=== PATIENT | female | born 1995 | race Caucasian/White ===

== ENCOUNTER 2017-03-12 23:01 | Emergency (ER) | payer MEDICAID ==
[~2017-03-12] VITALS: Ht 170.2 cm; Wt 127.2 kg
[~2017-03-12 23:01] MED LIST: LEVO150T7 PO; Z.0.BCPILL PO
[2017-03-12 23:07] VITALS: BP 161/70; PULSE 83; RESP 16; TEMP 98.6; O2SAT 99
[2017-03-12] MEDS ORDERED: TYLE325T PO (23:25)
[2017-03-12] MEDS ORDERED: LEVO137T2 PO (23:25)
[2017-03-12] MEDS ORDERED: IBUPROFEN 600 MG TAB PO ONE (23:30)
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
--- NOTE | 2017-03-13 00:07 | RADRPT ---
EXAM DATE/TIME: 03/12/2017 23:37 [facility] COMPARISON: No previous studies available for comparison. INDICATIONS : Wrist pain. MEDICAL HISTORY : None. SURGICAL HISTORY : Thyroidectomy ENCOUNTER: Initial ACUITY: 1 day PAIN SCORE: 8/10 LOCATION: Left upper extremity lateral distal forearm FINDINGS: Three view examination of the left wrist demonstrates no soft tissue swelling, dislocation, or fractu re. The carpal bones are in normal alignment. The joint spaces are maintained. Bony mineralization is normal. CONCLUSION: 1. No acute fracture or dislocation. Matthew Montana MD on March 13, 2017 at 0:05 Board Certified Radiologist. This report was verified electronically.
== END 2017-03-13 01:11 | disposition home or self-care (01) ==
LOC: PHED 23:01
DX: S63.502A Unspecified sprain of left wrist, initial encounter (principal); E89.0 Postprocedural hypothyroidism; W50.1XXA Accidental kick by another person, initial encounter; Y93.83 Activity, rough housing and horseplay; Y99.8 Other external cause status
CPT/HCPCS: 73110; 84443; 99283; L3908

== ENCOUNTER 2017-06-16 20:16 | Emergency (ER) | payer MEDICAID ==
[~2017-06-16] VITALS: Ht 170.2 cm; Wt 126.0 kg
[~2017-06-16 20:16] MED LIST changes: +LEVO137T2 PO; -LEVO150T7 PO; +TYLE325T PO; -Z.0.BCPILL PO
[2017-06-16 20:19] VITALS: BP 159/81; PULSE 83; RESP 17; TEMP 98.5; O2SAT 83
[2017-06-16] MEDS ORDERED: LEVO150T7 PO (20:44)
[2017-06-16] MEDS ORDERED: METOCLOPRAMIDE HCL 10 MG/2 ML VIAL IV PUSH ONE (20:45)
[2017-06-16] MEDS ORDERED: SODIUM CHLORIDE 0.9% FLUSH 10 ML FLUSH IV FLUSH PRN (20:45)
[2017-06-16] MEDS ORDERED: KETOROLAC TROMETHAMINE 30 MG/ML (IVP) VIAL IV PUSH ONE (20:45)
[2017-06-16 21:00] LABS: AUTOMATED NEUTROPHIL # 5.7 TH/MM3 (1.8-7.7); BASOPHIL # 0.1 TH/MM3 (0-0.2); BASOPHIL % 0.8 % (0.0-2.0); EOSINOPHIL # 0.2 TH/MM3 (0-0.4); EOSINOPHIL % 2.7 % (0.0-4.0); HEMATOCRIT 41.3 % (35.0-46.0); LYMPH % 24.6 % (9.0-44.0); MEAN CELL VOLUME 77.3 FL (80.0-100.0); MEAN CORPUSCULAR HEMOGLOBIN 24.5 PG (27.0-34.0); MEAN CORPUSCULAR HGB CONC 31.7 % (32.0-36.0); MONO % 4.2 % (0.0-8.0); NEUT % 67.7 % (16.0-70.0); PLATELET COUNT 362 TH/MM3 (150-450); RED BLOOD COUNT 5.34 MIL/MM3 (4.00-5.30); RED CELL DISTRIBUTION WIDTH 13.7 % (11.6-17.2); WHITE BLOOD COUNT 8.3 TH/MM3 (4.0-11.0)
[2017-06-16 21:02] LABS: HEMO FLAGS AUTO DIFF
[2017-06-16 21:07] VITALS: O2SAT 98
[2017-06-16 21:07] LABS: BLOOD, URINE MOD (NEG); GLUCOSE,URINE NEG (NEG); KETONE, URINE NEG (NEG); NITRITE,URINE NEG (NEG); PH, URINE 7.5 (5.0-8.5)
[2017-06-16 21:08] LABS: CHLORIDE 103 MEQ/L (98-107); POTASSIUM 3.6 MEQ/L (3.5-5.1); SODIUM (NA) 138 MEQ/L (136-145)
[2017-06-16 21:11] LABS: ANION GAP 9 MEQ/L (5-15); APTT (PATIENT) 26.5 SEC (24.3-30.1); BICARBONATE 26.5 MEQ/L (21.0-32.0); BLOOD UREA NITROGEN 14 MG/DL (7-18)
[2017-06-16 21:14] LABS: ALT (GPT) 33 U/L (9-42); AST (GOT) 16 U/L (16-38); URINE COLOR YELLOW (YELLW/STRAW)
[2017-06-16 21:15] LABS: GLOMERULAR FILTRATION RATE 81 ML/MIN (>89); RBC, URINE 0-3 /hpf (0-3); SQUAMOUS EPITHELIAL CELL URINE 0-5 /hpf (0-5)
[2017-06-16 21:16] LABS: COMMENT (UR) CULT NOT INDICATED; CULTURE IF INDICATED CULT NOT INDICATED; TOTAL BILIRUBIN ADULT 0.2 MG/DL (0.2-1.0); WBC, URINE 0-2 /hpf (0-5)
[2017-06-16 21:17] LABS: ALKALINE PHOSPHATASE 110 U/L (45-117)
--- NOTE | 2017-06-16 21:24 | PD ---
HPI Chief Complaint: Headache Time Seen by Provider: 20:29 Travel History International Travel<30 days: No Contact w/Intl Traveler<30days: No Traveled to known affect area: No History of Present Illness HPI 21-year-old female with history of hypothyroidism status post thyroidectomy at the age of 17, on Synthroid, here with family for evaluation of generalized malaise, blurred vision, retro-orbital eye pain, hair loss, weight gain. The patient reports that she believes that she may be hypothyroid. She has been taking her medication as prescribed, and reports that it was recently increased to 150 g daily about 2 months ago by her primary care physician. She has been unable to make an appointment with her primary care physician. She states she feels cold. No documented fevers. She does feel persistent nausea. Blurry vision is intermittent. Patient is unable to describe the retro-orbital pain which is also intermittent. She does have some photosensitivity with this pain. Currently no blurred vision. No abdominal pain. PFSH Past Medical History Diminished Hearing: No Immunizations Current: Yes Thyroid Disease: Yes (pre-cancerous thyroid nodules; hypothyroid) ?: Not LMP: 05/29/17 : 0 Past Surgical History Tonsillectomy: Yes Other Surgery: Yes (THYROIDECTOMY) Social History Alcohol Use: No Tobacco Use: No Substance Use: No Allergies-Medications (Allergen,Severity, Reaction): Coded Allergies: No Known Allergies (Verified Adverse Reaction, Unknown, 06/16/17) Reported Meds & Prescriptions Reported Meds & Active Scripts Active Reported Levothyroxine (Levothyroxine Sodium) 150 Mcg Tab 150 Mcg PO DAILY Review of Systems Except as stated in HPI: all other systems reviewed are Neg Physical Exam Narrative GENERAL: Well-developed, well-nourished, overweight, comfortable, no apparent distress. SKIN: Focused skin assessment warm/dry. No rash. HEAD: Atraumatic. Normocephalic. EYES: Pupils equal, round, 3 mm, reactive to light. EOMI. Funduscopic exam shows no papilledema, with normal appearing retina. Visual acuity is 20/20 in the right eye, 20/25 in the left eye. No scleral icterus. No injection or drainage. ENT: No nasal bleeding or discharge. Mucous membranes pink and moist. NECK: Trachea midline. No JVD. CARDIOVASCULAR: Regular rate and rhythm. RESPIRATORY: No accessory muscle use. Clear to auscultation. Breath sounds equal bilaterally. GASTROINTESTINAL: Abdomen soft, non-tender, nondistended. MUSCULOSKELETAL: No obvious deformities. No clubbing. No cyanosis. No edema. NEUROLOGICAL: Awake and alert. No obvious cranial nerve deficits. Motor grossly within normal limits. Normal speech. PSYCHIATRIC: Appropriate mood and affect; insight and judgment normal. Data Data Last Documented VS Vital Signs Date Time Temp Pulse Resp B/P (MAP) Pulse Ox O2 Delivery O2 Flow Rate FiO2 06/16/17 21:59 75 16 145/82 (103) 98 Room Air 06/16/17 20:19 98.5 Orders Orders Complete Blood Count With Diff (06/16/17 20:37) Comprehensive Metabolic Panel (06/16/17 20:37) Prothrombin Time / Inr (Pt) (06/16/17 20:37) Act Partial Throm Time (Ptt) (06/16/17 20:37) Urinalysis - C+S If Indicated (06/16/17 20:37) Iv Access Insert/Monitor (06/16/17 20:37) Ecg Monitoring (06/16/17 20:37) Oximetry (06/16/17 20:37) Sodium Chloride 0.9% Flush (Ns Flush) (06/16/17 20:45) Ed Urine Pregnancytest Poc (06/16/17 20:37) Ct Brain W/O Iv Contrast(Rout) (06/16/17 ) Metoclopramide Inj (Reglan Inj) (06/16/17 20:45) Ketorolac Inj (Toradol Inj) (06/16/17 20:45) Thyroid Stimulating Hormone (06/16/17 20:37) Free Thyroxine (T4) (06/16/17 20:37) Labs Laboratory Tests Test 06/16/17 20:52 White Blood Count 8.3 TH/MM3 Red Blood Count 5.34 MIL/MM3 Hemoglobin 13.1 GM/DL Hematocrit 41.3 % Mean Corpuscular Volume 77.3 FL Mean Corpuscular Hemoglobin 24.5 PG Mean Corpuscular Hemoglobin Concent 31.7 % Red Cell Distribution Width 13.7 % Platelet Count 362 TH/MM3 Mean Platelet Volume 7.9 FL Neutrophils (%) (Auto) 67.7 % Lymphocytes (%) (Auto) 24.6 % Monocytes (%) (Auto) 4.2 % Eosinophils (%) (Auto) 2.7 % Basophils (%) (Auto) 0.8 % Neutrophils # (Auto) 5.7 TH/MM3 Lymphocytes # (Auto) 2.0 TH/MM3 Monocytes # (Auto) 0.3 TH/MM3 Eosinophils # (Auto) 0.2 TH/MM3 Basophils # (Auto) 0.1 TH/MM3 CBC Comment AUTO DIFF Differential Comment AUTO DIFF CONFIRMED Ovalocytes 1+ Prothrombin Time 10.0 SEC Prothromb Time International Ratio 1.0 RATIO Activated Partial Thromboplast Time 26.5 SEC Urine Color YELLOW Urine Turbidity CLOUDY Urine pH 7.5 Urine Specific [place] 1.021 Urine Protein NEG mg/dL Urine Glucose (UA) NEG mg/dL Urine Ketones NEG mg/dL Urine Occult Blood MOD Urine Nitrite NEG Urine Bilirubin NEG Urine Leukocyte Esterase TRACE Urine RBC 0-3 /hpf Urine WBC 0-2 /hpf Urine Squamous Epithelial Cells 0-5 /hpf Urine Amorphous Sediment LARGE Microscopic Urinalysis Comment CULT NOT INDICATED Blood Urea Nitrogen 14 MG/DL Creatinine 0.89 MG/DL Random Glucose 91 MG/DL Total Protein 8.6 GM/DL Albumin 4.3 GM/DL Calcium Level 8.7 MG/DL Alkaline Phosphatase 110 U/L Aspartate Amino Transf (AST/SGOT) 16 U/L Alanine Aminotransferase (ALT/SGPT) 33 U/L Total Bilirubin 0.2 MG/DL Sodium Level 138 MEQ/L Potassium Level 3.6 MEQ/L Chloride Level 103 MEQ/L Carbon Dioxide Level 26.5 MEQ/L Anion Gap 9 MEQ/L Estimat Glomerular Filtration Rate 81 ML/MIN Thyroid Stimulating Hormone 3rd Gen 1.650 uIU/ML [facility] Medical Decision Making Medical Screen Exam Complete: Yes Emergency Medical Condition: Yes Differential Diagnosis Hypothyroidism, diabetes, metabolic abnormality, benign intracranial hypertension, intracranial abnormality, UTI, Narrative Course Vital signs show heart rate 75, blood pressure 145/82, pulse ox 98% on room air , oral temp of 98.5F. CBC is unremarkable. CMP is unremarkable. TSH is 1.65. UA is not suggestive of UTI. Urine is negative. CT head read as normal exam. The patient was given IV Toradol and IV Reglan and reports that she feels significantly improved. Vision is 20/20 in the right eye, 20/25 in the left eye. She no longer has blurry vision while in the emergency department. At this point she is stable for discharge home with further outpatient follow-up with her primary care physician this week. She was advised on when to return to the emergency department. She verbalizes understanding and agreement with plan. Diagnosis Primary Impression: Malaise Additional Impressions: Blurry vision Headache Qualified Codes: R51 - Headache Referrals: Primary Care Physician 3 days Additional Instructions: Follow-up with a primary care physician this week. Return to the emergency department for worsening symptoms or any other concerns. Scripts Ondansetron Odt (Zofran Odt) 4 Mg Tab 4 MG SL Q8HR Y for Nausea/Vomiting, #20 TAB 0 Refills Prov: Rafi Villavicencio MD 06/16/17 Disposition: 01 DISCHARGE HOME Condition: Stable Rafi Villavicencio MD Jun 16, 2017 21:24
--- NOTE | 2017-06-16 21:57 | RADRPT ---
EXAM DATE/TIME: 06/16/2017 21:07 [facility] COMPARISON: CT BRAIN W/O CONTRAST, August 30, 2015, 22:03. INDICATIONS : Cephalgia. Blurred vision. RADIATION DOSE: 57.79 CTDIvol (mGy) MEDICAL HISTORY : None SURGICAL HISTORY : Thyroidectomy. Tonsillectomy. ENCOUNTER: Initial ACUITY: 2 months PAIN SCALE: 6/10 LOCATION: Bilateral frontal TECHNIQUE: Multiple contiguous axial images were obtained of the head. Using automated exposure control and adj ustment of the mA and/or kV according to patient size, radiation dose was kept as low as reasonably a chievable to obtain optimal diagnostic quality images. DICOM format image data is available electro nically for review and comparison. FINDINGS: CEREBRUM: The ventricles are normal for age. No evidence of midline shift, mass lesion, hemorrhage or acute in farction. No extra-axial fluid collections are seen. POSTERIOR FOSSA: The cerebellum and brainstem are intact. The 4th ventricle is midline. The cerebellopontine angle i s unremarkable. EXTRACRANIAL: The visualized portion of the orbits is intact. SKULL: The calvaria is intact. No evidence of skull fracture. CONCLUSION: 1. No acute intracranial abnormalities. Haseeb Pritchett MD on June 16, 2017 at 21:54 Board Certified Radiologist. This report was verified electronically.
[2017-06-16 21:58] LABS: OVALOCYTES 1+ (NORMAL)
[2017-06-16 21:59] VITALS: BP 145/82; PULSE 75; RESP 16; O2SAT 98
[2017-06-16 21:59] LABS: SCAN/DIFF AUTO DIFF CONFIRMED
[2017-06-16] MEDS ORDERED: ZOFR4TAB3 SL (22:13)
[2017-06-16 22:57] LABS: FREE T4 1.16 NG/DL (0.76-1.46)
== END 2017-06-16 22:22 | disposition home or self-care (01) ==
LOC: PHED 20:16
DX: R53.81 Other malaise (principal); H53.8 Other visual disturbances; R51 Headache; R11.0 Nausea; E89.0 Postprocedural hypothyroidism; Z79.899 Other long term (current) drug therapy
CPT/HCPCS: 70450; 80053; 81001; 84439; 84443; 84703; 85025; 85610; 85730; 96374; 96375; 99285; J1885; J2765

== ENCOUNTER 2017-10-29 03:22 | Emergency (ER) | payer MEDICAID, OTHER ==
[~2017-10-29] VITALS: Ht 170.2 cm; Wt 126.8 kg
[~2017-10-29 03:22] MED LIST changes: -LEVO137T2 PO; +LEVO150T7 PO; -TYLE325T PO; +ZOFR4TAB3 SL
[2017-10-29] MEDS ORDERED: IOHEXOL 350 MG/ML 10 ML VIAL (for RAD DIAG) IVCONTRAST ONE (03:23)
[2017-10-29 03:27] VITALS: BP 143/80; PULSE 99; RESP 20; TEMP 98.8; O2SAT 98
[2017-10-29] MEDS ORDERED: ONDANSETRON HCL 4 MG/2 ML VIAL IVP ONE (03:45)
[2017-10-29] MEDS ORDERED: KETOROLAC TROMETHAMINE 30 MG/ML (IVP) VIAL IVP ONE (03:45)
--- NOTE | 2017-10-29 03:45 | PD ---
HPI Chief Complaint: Abdominal Pain Time Seen by Provider: 03:36 Travel History International Travel<30 days: No Contact w/Intl Traveler<30days: No Traveled to known affect area: No History of Present Illness HPI 22yo F with no PMH presents to the ED with c/o right sided abdominal pain for 30 minutes. Pain is right sided and feels like it radiates to right lower back. Movement and deep breathing worsens pain. Pain is severe, sharp and associated with nausea. Denies any fever, chest pain, sob, vomiting, dysuria, hematuria, vaginal bleeding or discharge. Denies any history of nephrolithiasis. PFSH Past Medical History Diminished Hearing: No Immunizations Current: Yes Thyroid Disease: Yes (pre-cancerous thyroid nodules; hypothyroid) Tetanus Vaccination: Unknown Influenza Vaccination: No ?: Not LMP: 10/25/17 : 0 Past Surgical History Tonsillectomy: Yes Other Surgery: Yes (THYROIDECTOMY) Social History Alcohol Use: No Tobacco Use: No Substance Use: No Allergies-Medications (Allergen,Severity, Reaction): Coded Allergies: No Known Allergies (Verified Adverse Reaction, Unknown, 10/29/17) Reported Meds & Prescriptions Reported Meds & Active Scripts Active Reported Levothyroxine (Levothyroxine Sodium) 150 Mcg Tab 150 Mcg PO DAILY Review of Systems Except as stated in HPI: all other systems reviewed are Neg Physical Exam Narrative GENERAL: 22yo F in moderate distress. SKIN: Focused skin assessment warm/dry. HEAD: Atraumatic. Normocephalic. CARDIOVASCULAR: Regular rate and rhythm. No murmur appreciated. RESPIRATORY: No accessory muscle use. Clear to auscultation. Breath sounds equal bilaterally. GASTROINTESTINAL: Abdomen soft, +TTP right of umbilicus. Right mid abdomen. BACK: No CVA tenderness bilaterally. +TTP right paraspinal L4-5. MUSCULOSKELETAL: No obvious deformities. No clubbing. No cyanosis. No edema. NEUROLOGICAL: Awake and alert. No obvious cranial nerve deficits. Motor grossly within normal limits. Normal speech. PSYCHIATRIC: Appropriate mood and affect; insight and judgment normal. Data Data Last Documented VS Vital Signs Date Time Temp Pulse Resp B/P (MAP) Pulse Ox O2 Delivery O2 Flow Rate FiO2 10/29/17 05:04 102 16 134/72 (92) 98 Room Air 10/29/17 03:27 98.8 Orders Orders Complete Blood Count With Diff (10/29/17 03:41) Comprehensive Metabolic Panel (10/29/17 03:41) Lipase (10/29/17 03:41) Urinalysis - C+S If Indicated (10/29/17 03:41) Ct Abd/Pel W Iv Contrast(Rout) (10/29/17 03:41) Ondansetron Inj (Zofran Inj) (10/29/17 03:45) Ketorolac Inj (Toradol Inj) (10/29/17 03:45) Ed Urine Pregnancytest Poc (10/29/17 03:41) Urine Culture (10/29/17 03:50) Iohexol 350 Inj (Omnipaque 350 Inj) (10/29/17 03:23) Morphine Inj (Morphine Inj) (10/29/17 04:45) Ondansetron Inj (Zofran Inj) (10/29/17 04:45) Ceftriaxone Inj (Rocephin Inj) (10/29/17 04:45) Morphine Inj (Morphine Inj) (10/29/17 05:15) Sodium Chlor 0.9% 1000 Ml Inj (Ns 1000 M (10/29/17 05:15) Labs Laboratory Tests Test 10/29/17 03:50 10/29/17 03:58 Urine Color YELLOW Urine Turbidity CLOUDY Urine pH 6.5 Urine Specific [place] 1.015 Urine Protein TRACE mg/dL Urine Glucose (UA) NEG mg/dL Urine Ketones NEG mg/dL Urine Occult Blood LARGE Urine Nitrite NEG Urine Bilirubin NEG Urine Urobilinogen 0.2 MG/DL Urine Leukocyte Esterase TRACE Urine RBC 25-49 /hpf Urine WBC 9-14 /hpf Urine Squamous Epithelial Cells 6-8 /hpf Urine Amorphous Sediment MOD Urine Bacteria MANY /hpf Microscopic Urinalysis Comment CULTURE INDICATED White Blood Count 6.9 TH/MM3 Red Blood Count 4.74 MIL/MM3 Hemoglobin 12.1 GM/DL Hematocrit 36.0 % Mean Corpuscular Volume 76.0 FL Mean Corpuscular Hemoglobin 25.4 PG Mean Corpuscular Hemoglobin Concent 33.5 % Red Cell Distribution Width 13.7 % Platelet Count 314 TH/MM3 Mean Platelet Volume 8.3 FL Neutrophils (%) (Auto) 53.0 % Lymphocytes (%) (Auto) 36.1 % Monocytes (%) (Auto) 6.6 % Eosinophils (%) (Auto) 2.8 % Basophils (%) (Auto) 1.5 % Neutrophils # (Auto) 3.6 TH/MM3 Lymphocytes # (Auto) 2.5 TH/MM3 Monocytes # (Auto) 0.5 TH/MM3 Eosinophils # (Auto) 0.2 TH/MM3 Basophils # (Auto) 0.1 TH/MM3 CBC Comment DIFF FINAL Differential Comment Blood Urea Nitrogen 16 MG/DL Creatinine 0.77 MG/DL Random Glucose 104 MG/DL Total Protein 8.0 GM/DL Albumin 3.9 GM/DL Calcium Level 9.0 MG/DL Alkaline Phosphatase 95 U/L Aspartate Amino Transf (AST/SGOT) 16 U/L Alanine Aminotransferase (ALT/SGPT) 24 U/L Total Bilirubin 0.1 MG/DL Sodium Level 139 MEQ/L Potassium Level 4.1 MEQ/L Chloride Level 106 MEQ/L Carbon Dioxide Level 28.3 MEQ/L Anion Gap 5 MEQ/L Estimat Glomerular Filtration Rate 95 ML/MIN Lipase 82 U/L MDM Medical Decision Making Medical Screen Exam Complete: Yes Emergency Medical Condition: Yes Differential Diagnosis Nephrolithiasis vs. pyelonephritis vs. appendicitis Narrative Course 22yo F with sudden onset right sided abdominal pain that is worst with movement and deep breathing. Impression is nephrolithiasis. Labs reviewed, no leukocytosis. H/H normal. Creatinine normal at 0.77. UA showed large blood. WBC 9-14. Pt given ceftriaxone 1gm IV. Urine negative. Pt given zofran and toradol which did not help and pt was still vomiting. Pt given another dose of zofran and morphine 4mg IV. Pt's improved improved but is now back so another 6mg of morphine given. CT a/p showed normal appendix. Nonobstructing calculus right renal pelvis measures 2mm. Nonobstructing left renal calculus measures 2-3 mm. Kidneys show no mass or hydronephrosis. Pt reevaluated at bedside and pain has now resolved. Pt feels better and no longer nauseous. Tolerating PO. Return precautions given. Diagnosis Primary Impression: UTI (urinary tract infection) Qualified Codes: N39.0 - Urinary tract infection, site not specified; R31.9 - Hematuria, unspecified Additional Impression: Nephrolithiasis Referrals: Francis Packer DO as needed Patient Instructions: General Instructions Departure Forms: Tests/Procedures Additional Instructions: Please follow up with your primary care physician in 2-3 days. Return to the ED if symptoms worsen. Med/Other Pt SpecificInfo: Prescription(s) given Scripts Hydrocodone-Acetaminophen (Hydrocodone-Acetaminophen) 5-325 mg Tab 1 TAB PO Q6H Y for PAIN, #6 TAB 0 Refills Prov: Sena Kaba DO 10/29/17 Sulfamethoxazole-Trimethoprim (Bactrim DS) 800-160 Mg Tab 1 TAB PO BID for Infection, #14 TAB 0 Refills Prov: Sena Kaba DO 10/29/17 Disposition: 01 DISCHARGE HOME Condition: Stable Sena Kaba DO Oct 29, 2017 03:45
[2017-10-29 04:11] LABS: BILIRUBIN, URINE NEG (NEG); BLOOD, URINE LARGE (NEG); GLUCOSE,URINE NEG (NEG); KETONE, URINE NEG (NEG); NITRITE,URINE NEG (NEG); PH, URINE 6.5 (5.0-8.5); URINE COLOR YELLOW (YELLW/STRAW); URINE LEUKOCYTE ESTERASE TRACE (NEG)
[2017-10-29 04:12] LABS: AUTOMATED NEUTROPHIL # 3.6 TH/MM3 (1.8-7.7); BASOPHIL # 0.1 TH/MM3 (0-0.2); BASOPHIL % 1.5 % (0.0-2.0); EOSINOPHIL # 0.2 TH/MM3 (0-0.4); EOSINOPHIL % 2.8 % (0.0-4.0); HEMOGLOBIN 12.1 GM/DL (11.6-15.3); LYMPH % 36.1 % (9.0-44.0); LYMPHOCYTE # 2.5 TH/MM3 (1.0-4.8); MEAN CORPUSCULAR HEMOGLOBIN 25.4 PG (27.0-34.0); MEAN CORPUSCULAR HGB CONC 33.5 % (32.0-36.0); MEAN PLATELET VOLUME 8.3 FL (7.0-11.0); MONO % 6.6 % (0.0-8.0); MONOCYTE # 0.5 TH/MM3 (0-0.9); PLATELET COUNT 314 TH/MM3 (150-450); RED BLOOD COUNT 4.74 MIL/MM3 (4.00-5.30); RED CELL DISTRIBUTION WIDTH 13.7 % (11.6-17.2); WHITE BLOOD COUNT 6.9 TH/MM3 (4.0-11.0)
[2017-10-29 04:17] LABS: AMORPHOUS SEDIMENT, URINE MOD; BACTERIA, URINE MANY /hpf
[2017-10-29 04:18] LABS: CHLORIDE 106 MEQ/L (98-107); SODIUM (NA) 139 MEQ/L (136-145)
[2017-10-29 04:22] LABS: ALBUMIN 3.9 GM/DL (3.4-5.0); BICARBONATE 28.3 MEQ/L (21.0-32.0); BLOOD UREA NITROGEN 16 MG/DL (7-18); GLUCOSE,RANDOM 104 MG/DL (74-106)
[2017-10-29 04:25] LABS: ALT (GPT) 24 U/L (10-53); AST (GOT) 16 U/L (15-37); CREATININE 0.77 MG/DL (0.50-1.00); GLOMERULAR FILTRATION RATE 95 ML/MIN (>89)
[2017-10-29 04:27] LABS: TOTAL BILIRUBIN ADULT 0.1 MG/DL (0.2-1.0)
[2017-10-29 04:28] LABS: ALKALINE PHOSPHATASE 95 U/L (45-117)
[2017-10-29] MEDS ORDERED: ONDANSETRON HCL 4 MG/2 ML VIAL IV PUSH ONE (04:45)
[2017-10-29] MEDS ORDERED: MORPHINE SULFATE 4 MG/ML INJ IV PUSH ONE (04:45)
[2017-10-29] MEDS ORDERED: cefTRIAXone INJ 1,000 MG in SODIUM CHLORIDE 0.9% INJ 100 ML IV ONE (04:45)
[2017-10-29 05:04] VITALS: BP 134/72; PULSE 102; RESP 16; O2SAT 98
[2017-10-29] MEDS ORDERED: MORPHINE SULFATE 8 MG/ML INJ IV PUSH ONE (05:15)
[2017-10-29] MEDS ORDERED: SODIUM CHLOR 0.9% 1000 ML INJ 1,000 ML IV ONE (05:15)
--- NOTE | 2017-10-29 05:20 | RADRPT ---
EXAM DATE/TIME: 10/29/2017 04:20 [facility] COMPARISON: No previous studies available for comparison. INDICATIONS : Right lower abdomen pain today. IV CONTRAST: 94 cc Omnipaque 350 (iohexol) IV ORAL CONTRAST: No oral contrast ingested. RADIATION DOSE: 22.33 CTDIvol (mGy) ; Patient body habitus MEDICAL HISTORY : None SURGICAL HISTORY : Thyroidectomy. ENCOUNTER: Initial ACUITY: 1 day PAIN SCALE: 9/10 LOCATION: Right lower quadrant TECHNIQUE: Volumetric scanning of the abdomen and pelvis was performed. Using automated exposure control and ad justment of the mA and/or kV according to patient size, radiation dose was kept as low as reasonably achievable to obtain optimal diagnostic quality images. DICOM format image data is available electro nically for review and comparison. FINDINGS: LOWER LUNGS: The visualized lower lungs are clear. LIVER: Homogeneous density without lesion. There is no dilation of the biliary tree. No calcified gallston es. SPLEEN: Normal size without lesion. PANCREAS: Within normal limits. KIDNEYS: Normal in size and shape. There is no mass or hydronephrosis. No obstructing calculus left mid kidne y measures to 2-3 mm. Nonobstructing 2 mm calculus in the right renal pelvis.. ADRENAL GLANDS: Within normal limits. VASCULAR: There is no aortic aneurysm. BOWEL/MESENTERY: The stomach, small bowel, and colon demonstrate no acute abnormality. There is no free intraperitone al air or fluid. Normal appendix. ABDOMINAL WALL: Within normal limits. RETROPERITONEUM: There is no lymphadenopathy. BLADDER: No wall thickening or mass. REPRODUCTIVE: Within normal limits. INGUINAL: There is no lymphadenopathy or hernia. MUSCULOSKELETAL: Within normal limits for patient age. CONCLUSION: 1. Nonobstructing calculus right renal pelvis measures 2 mm. 2. Nonobstructing left renal calculus measures 2-3 mm. Franky Del Castillo MD on October 29, 2017 at 5:15 Board Certified Radiologist. This report was verified electronically.
[2017-10-29] MEDS ORDERED: BACT800T5 PO (05:50)
[2017-10-29] MEDS ORDERED: HYDR-3516 PO (05:51)
[2017-10-29 06:27] VITALS: BP 134/72
[2017-10-30] MEDS ORDERED: HYDR-3516 PO (20:56)
[2017-10-30] MEDS ORDERED: IBUP1TAB7 PO (20:56)
[2017-10-30] MEDS ORDERED: TAMS5CAP PO (20:56)
== END 2017-10-29 06:30 | disposition home or self-care (01) ==
LOC: PHED 03:22
DX: N39.0 Urinary tract infection, site not specified (principal); B96.20 Unspecified Escherichia coli [E. coli] as the cause of diseases classified elsewhere; N20.0 Calculus of kidney; R11.0 Nausea; E03.9 Hypothyroidism, unspecified; Z79.899 Other long term (current) drug therapy
CPT/HCPCS: 74177; 80053; 81001; 83690; 84703; 85025; 87077; 87086; 87186; 96361; 96365; 99285; J0696; J1885; J2270; J2405; J7030; Q9967

== ENCOUNTER 2017-10-30 16:25 | Emergency (ER) | payer OTHER ==
[~2017-10-30] VITALS: Ht 170.2 cm; Wt 125.8 kg
[~2017-10-30 16:25] MED LIST changes: +BACT800T5 PO; +HYDR-3516 PO; -ZOFR4TAB3 SL
[2017-10-30 16:40] VITALS: BP 166/91; PULSE 77; RESP 20; TEMP 98.3; O2SAT 100
[2017-10-30] MEDS ORDERED: SODIUM CHLOR 0.9% 1000 ML INJ 1,000 ML IV SCH (16:53)
[2017-10-30] MEDS ORDERED: SODIUM CHLORIDE 0.9% FLUSH 10 ML FLUSH IV FLUSH PRN (17:00)
[2017-10-30] MEDS ORDERED: ONDANSETRON HCL 4 MG/2 ML VIAL IVP ONE (17:00)
[2017-10-30] MEDS ORDERED: KETOROLAC TROMETHAMINE 30 MG/ML (IVP) VIAL IVP ONE (17:00)
--- NOTE | 2017-10-30 17:00 | PD ---
HPI Chief Complaint: Flank/Kidney Pain Time Seen by Provider: 16:47 Travel History International Travel<30 days: No Contact w/Intl Traveler<30days: No Traveled to known affect area: No History of Present Illness HPI 22-year-old female presents to the emergency department for evaluation of right lower back pain that radiates to the right abdomen. Current pain is 10/10, aching and throbbing. Patient states that the pain went away until just prior to arrival when the pain restarted with nausea. Patient took the Lynn that was prescribed to her without improvement. She reports subjective fever yesterday, but did not check her temperature. No headache. No chest pain or shortness of breath. No vomiting. No diarrhea or constipation. She denies abnormal vaginal discharge or risk of STDs. She is diagnosed with nephrolithiasis and UTI yesterday. Patient was discharged prescription for Lynn as well as Bactrim for UTI. Moderate severity. PFSH Past Medical History Diminished Hearing: No Immunizations Current: Yes Thyroid Disease: Yes (pre-cancerous thyroid nodules; hypothyroid) ?: Not LMP: 1 week : 0 Past Surgical History Tonsillectomy: Yes Other Surgery: Yes (THYROIDECTOMY) Social History Alcohol Use: No Tobacco Use: No Substance Use: No Allergies-Medications (Allergen,Severity, Reaction): Coded Allergies: No Known Allergies (Verified Adverse Reaction, Unknown, 10/30/17) Reported Meds & Prescriptions Reported Meds & Active Scripts Active Hydrocodone-Acetaminophen 5-325 mg Tab 1 Tab PO Q6H PRN Bactrim DS (Sulfamethoxazole-Trimethoprim) 800-160 Mg Tab 1 Tab PO BID Reported Levothyroxine (Levothyroxine Sodium) 150 Mcg Tab 150 Mcg PO DAILY Review of Systems Except as stated in HPI: all other systems reviewed are Neg Physical Exam Narrative GENERAL: Well-nourished, well-developed female patient, ambulatory. Afebrile. SKIN: Focused skin assessment warm/dry. HEAD: Normocephalic. Atraumatic. EYES: No scleral icterus. No injection or drainage. NECK: Supple, trachea midline. No JVD or lymphadenopathy. CARDIOVASCULAR: Regular rate and rhythm without murmurs, gallops, or rubs. RESPIRATORY: Breath sounds equal bilaterally. No accessory muscle use. Lung sounds are clear to auscultation. GASTROINTESTINAL: Abdomen soft and nondistended. Patient has tenderness over right upper quadrant, right lower quadrant. MUSCULOSKELETAL: No cyanosis, or edema. BACK: Nontender without obvious deformity. No CVA tenderness. Data Data Last Documented VS Vital Signs Date Time Temp Pulse Resp B/P (MAP) Pulse Ox O2 Delivery O2 Flow Rate FiO2 10/30/17 18:45 18 10/30/17 18:20 79 146/83 (104) 98 Room Air 10/30/17 16:40 98.3 Orders Orders Complete Blood Count With Diff (10/30/17 16:53) Comprehensive Metabolic Panel (10/30/17 16:53) Lipase (10/30/17 16:53) Urinalysis - C+S If Indicated (10/30/17 16:53) Iv Access Insert/Monitor (10/30/17 16:53) Ecg Monitoring (10/30/17 16:53) Oximetry (10/30/17 16:53) Ondansetron Inj (Zofran Inj) (10/30/17 17:00) Sodium Chlor 0.9% 1000 Ml Inj (Ns 1000 M (10/30/17 16:53) Sodium Chloride 0.9% Flush (Ns Flush) (10/30/17 17:00) Ketorolac Inj (Toradol Inj) (10/30/17 17:00) Urine Culture (10/30/17 16:55) Sodium Chlor 0.9% 1000 Ml Inj (Ns 1000 M (10/30/17 18:15) Basic Metabolic Panel (Bmp) (10/30/17 18:45) Morphine Inj (Morphine Inj) (10/30/17 19:30) Labs Laboratory Tests Test 10/30/17 16:55 10/30/17 17:15 10/30/17 20:15 Urine Color YELLOW Urine Turbidity SL CLOUDY Urine pH 6.5 Urine Specific [place] 1.025 Urine Protein TRACE mg/dL Urine Glucose (UA) NEG mg/dL Urine Ketones NEG mg/dL Urine Occult Blood LARGE Urine Nitrite NEG Urine Bilirubin NEG Urine Urobilinogen 0.2 MG/DL Urine Leukocyte Esterase NEG Urine RBC 100-200 /hpf Urine WBC 9-14 /hpf Urine Squamous Epithelial Cells > 8 /hpf Urine Amorphous Sediment SMALL Urine Bacteria OCC /hpf Microscopic Urinalysis Comment CULTURE INDICATED White Blood Count 8.5 TH/MM3 Red Blood Count 4.78 MIL/MM3 Hemoglobin 12.0 GM/DL Hematocrit 37.1 % Mean Corpuscular Volume 77.7 FL Mean Corpuscular Hemoglobin 25.1 PG Mean Corpuscular Hemoglobin Concent 32.3 % Red Cell Distribution Width 13.5 % Platelet Count 310 TH/MM3 Mean Platelet Volume 7.7 FL Neutrophils (%) (Auto) 73.9 % Lymphocytes (%) (Auto) 18.0 % Monocytes (%) (Auto) 5.8 % Eosinophils (%) (Auto) 1.7 % Basophils (%) (Auto) 0.6 % Neutrophils # (Auto) 6.3 TH/MM3 Lymphocytes # (Auto) 1.5 TH/MM3 Monocytes # (Auto) 0.5 TH/MM3 Eosinophils # (Auto) 0.1 TH/MM3 Basophils # (Auto) 0.1 TH/MM3 CBC Comment DIFF FINAL Differential Comment Blood Urea Nitrogen 14 MG/DL 17 MG/DL Creatinine 1.30 MG/DL 1.30 MG/DL Random Glucose 93 MG/DL 87 MG/DL Total Protein 7.9 GM/DL Albumin 3.9 GM/DL Calcium Level 9.4 MG/DL 8.3 MG/DL Alkaline Phosphatase 97 U/L Aspartate Amino Transf (AST/SGOT) 13 U/L Alanine Aminotransferase (ALT/SGPT) 22 U/L Total Bilirubin 0.3 MG/DL Sodium Level 139 MEQ/L 141 MEQ/L Potassium Level 3.9 MEQ/L 4.2 MEQ/L Chloride Level 104 MEQ/L 110 MEQ/L Carbon Dioxide Level 27.6 MEQ/L 25.3 MEQ/L Anion Gap 7 MEQ/L 6 MEQ/L Estimat Glomerular Filtration Rate 52 ML/MIN 52 ML/MIN Lipase 77 U/L [facility] Medical Decision Making Medical Screen Exam Complete: Yes Emergency Medical Condition: Yes Medical Record Reviewed: Yes Differential Diagnosis Nephrolithiasis versus UTI versus intractable pain versus pyelonephritis Narrative Course 22-year-old female presents to the emergency department for evaluation of right back pain that radiates the right abdomen. Patient was seen yesterday morning for the same thing. I reviewed the chart from yesterday. CBC showed no acute abnormality. CMP was unremarkable. Lipase was 82. UA showed large occult blood, 9-14 WBC, culture indicated. Urine test was negative. CT the abdomen/pelvis with IV contrast showed nonobstructing calculus right renal pelvis measures 2 mm, nonobstructing left renal calculus measures 2-3 mm. CBC, CMP, lipase, UA are ordered and pending. Patient is given normal saline 1 L IV bolus, Zofran 4 mg IV, Toradol 30 mg IV. CBC shows no acute. CMP shows creatinine 1.30. Lipase is 77. UA shows 9-14 WBCs however contaminated with squamous epithelial cells I discussed elevated creatinine with my attending physician who recommends patient get second liter normal saline IV bolus and repeat labs. Repeat BMP shows no change in creatinine. Discussed this with Dr. Fuller, my attending physician. Patient stressed on the need to follow-up with urology. She will be given some more hydrocodone for home. Also started on Flomax. She will be given her first dose here. I will also give her prescription for ibuprofen. Patient is instructed to return for any acute worsening of symptoms. The patient was discharged in stable condition with instructions, including return instructions and follow up instructions. Diagnosis Primary Impression: Nephrolithiasis Additional Impression: Urinary tract infection Qualified Codes: N30.01 - Acute cystitis with hematuria Referrals: Duy Lipscomb MD Urologist Patient Instructions: General Instructions, Kidney Stones (ED), Urinary Tract Infection in Women (ED) Additional Instructions: Continue Lynn as directed as needed for moderate to severe pain. Cautioned this can make you drowsy so do not drive after taking. Take ibuprofen as directed as needed for [id number] pain. Take Flomax daily as directed. You were given your first dose here. Continue Bactrim until gone. Follow up with an urologist. Dr. Lipscomb is our urologist labor commissioner today. His information is attached. Return to the emergency department for any acute worsening of symptoms Med/Other Pt SpecificInfo: Prescription(s) given Scripts Ibuprofen (Ibuprofen) 800 Mg Tab 800 MG PO TID Y for PAIN SCALE 1 TO 10, #21 TAB 0 Refills Prov: Mehnaz Forbes 10/30/17 Tamsulosin (Flomax) 0.4 Mg Cap 0.4 MG PO HS, #14 CAP 0 Refills Prov: Mehnaz Forbes 10/30/17 Hydrocodone-Acetaminophen (Hydrocodone-Acetaminophen) 5-325 mg Tab 1 TAB PO Q6H Y for PAIN, #8 TAB 0 Refills Prov: Mehnaz Forbes 10/30/17 Disposition: 01 DISCHARGE HOME Condition: Stable Mehnaz Forbes Oct 30, 2017 17:00
[2017-10-30 17:11] LABS: BILIRUBIN, URINE NEG (NEG); BLOOD, URINE LARGE (NEG); GLUCOSE,URINE NEG (NEG); KETONE, URINE NEG (NEG); NITRITE,URINE NEG (NEG); PH, URINE 6.5 (5.0-8.5); URINE COLOR YELLOW (YELLW/STRAW); URINE LEUKOCYTE ESTERASE NEG (NEG)
[2017-10-30 17:23] LABS: AUTOMATED NEUTROPHIL # 6.3 TH/MM3 (1.8-7.7); BASOPHIL # 0.1 TH/MM3 (0-0.2); BASOPHIL % 0.6 % (0.0-2.0); EOSINOPHIL # 0.1 TH/MM3 (0-0.4); EOSINOPHIL % 1.7 % (0.0-4.0); HEMATOCRIT 37.1 % (35.0-46.0); LYMPHOCYTE # 1.5 TH/MM3 (1.0-4.8); MEAN CELL VOLUME 77.7 FL (80.0-100.0); MEAN CORPUSCULAR HEMOGLOBIN 25.1 PG (27.0-34.0); MEAN CORPUSCULAR HGB CONC 32.3 % (32.0-36.0); MEAN PLATELET VOLUME 7.7 FL (7.0-11.0); MONO % 5.8 % (0.0-8.0); MONOCYTE # 0.5 TH/MM3 (0-0.9); NEUT % 73.9 % (16.0-70.0); PLATELET COUNT 310 TH/MM3 (150-450); RED BLOOD COUNT 4.78 MIL/MM3 (4.00-5.30); RED CELL DISTRIBUTION WIDTH 13.5 % (11.6-17.2); WHITE BLOOD COUNT 8.5 TH/MM3 (4.0-11.0)
[2017-10-30 17:26] VITALS: BP 134/83; PULSE 73; RESP 20; O2SAT 98
[2017-10-30 17:27] VITALS: RESP 20; O2SAT 98
[2017-10-30 17:27] LABS: RBC, URINE 100-200 /hpf (0-3)
[2017-10-30 17:28] LABS: AMORPHOUS SEDIMENT, URINE SMALL; BACTERIA, URINE OCC /hpf; SQUAMOUS EPITHELIAL CELL URINE > 8 /hpf (0-5)
[2017-10-30 17:30] LABS: CHLORIDE 104 MEQ/L (98-107); SODIUM (NA) 139 MEQ/L (136-145)
[2017-10-30 17:33] LABS: CALCIUM 9.4 MG/DL (8.5-10.1)
[2017-10-30 17:34] LABS: ALBUMIN 3.9 GM/DL (3.4-5.0); BICARBONATE 27.6 MEQ/L (21.0-32.0); BLOOD UREA NITROGEN 14 MG/DL (7-18); GLUCOSE,RANDOM 93 MG/DL (74-106)
[2017-10-30 17:36] LABS: ALT (GPT) 22 U/L (10-53)
[2017-10-30 17:37] LABS: AST (GOT) 13 U/L (15-37); GLOMERULAR FILTRATION RATE 52 ML/MIN (>89)
[2017-10-30 17:38] LABS: TOTAL BILIRUBIN ADULT 0.3 MG/DL (0.2-1.0); TOTAL PROTEIN 7.9 GM/DL (6.4-8.2)
[2017-10-30 17:39] LABS: ALKALINE PHOSPHATASE 97 U/L (45-117)
[2017-10-30] MEDS ORDERED: SODIUM CHLOR 0.9% 1000 ML INJ 1,000 ML IV ONE (18:15)
[2017-10-30 18:20] VITALS: BP 146/83; PULSE 79; RESP 18; O2SAT 98
[2017-10-30] MEDS ORDERED: MORPHINE SULFATE 4 MG/ML INJ IV PUSH ONE (19:30)
[2017-10-30 20:43] LABS: BICARBONATE 25.3 MEQ/L (21.0-32.0); CALCIUM 8.3 MG/DL (8.5-10.1); CREATININE 1.3 MG/DL (0.50-1.00)
[2017-10-30] MEDS ORDERED: HYDR-3516 PO (20:56)
[2017-10-30] MEDS ORDERED: TAMS5CAP PO (20:56)
[2017-10-30] MEDS ORDERED: IBUP1TAB7 PO (20:56)
[2017-10-30 20:57] VITALS: BP 139/52; PULSE 76; RESP 16; O2SAT 96
[2017-10-30] MEDS ORDERED: TAMSULOSIN HCL 0.4 MG CAP PO ONE (21:00)
== END 2017-10-30 21:06 | disposition home or self-care (01) ==
LOC: PHEFT 16:25
DX: N20.0 Calculus of kidney (principal); N30.01 Acute cystitis with hematuria; R79.89 Other specified abnormal findings of blood chemistry; E03.9 Hypothyroidism, unspecified; Z79.899 Other long term (current) drug therapy
CPT/HCPCS: 80053; 81001; 83690; 85025; 87086; 96361; 96374; 96375; 99284; J1885; J2270; J2405; J7030; 80048